=== PATIENT | male | born 1975 | race Hispanic/Latino ===

== ENCOUNTER 2019-08-16 21:22 | Inpatient (IN) | payer OTHER ==
[~2019-08-16] VITALS: Ht 160 cm; Wt 68.5 kg
[~2019-08-16 21:22] MED LIST: BACTRIM DS TAB1 EACH PO; HUMALOG100 UNIT/1 SC; HUMALOG100 UNIT/3 SC; LEVEMIR100 UNIT/1 SC; LISINOPRIL10 MG PO; LISINOPRIL2.5 MG PO; NOVOLOG MI100 UNITS/ INJ; NOVOLOG MI100 UNITS/ SC; PROTONIX40 MG PO
[2019-08-16] MEDS ORDERED: SODIUM CHLORIDE 0.9% 1000ML 1,000 ML IV STA (21:31)
--- NOTE | 2019-08-16 21:33 | Emergency Department Note ---
History of Present Illnes History of Present Illness History of Present Illness This is a 44 year old male (+) N/V x 4 days . Historian: Patient Arrival Mode: Car Onset (how long ago): day(s) (4) Severity: moderate Duration (how long): day(s) Timing of current episode: constant Progression: worsening Chronicity: new Context: Denies recent illness, Denies recent surgery, Denies recent immobilization, Denies recent travel, Denies trauma/injury, Denies new medications, Denies hx of DVT/PE, Denies non-compliance w/ medications, Denies other Relieving factors: none Exacerbating factors: none Associated symptoms: Reports nausea/vomiting; Denies fever/chills Past Medical/Family History Physician Review I have reviewed the patient's past medical and family history. Any updates have been documented here. Past Medical History Recent Fever: No Clinical Suspicion of Infectio: No New/Unexplained Change in Ment: No Social History Smoking Cessation: Never Smoker Alcohol Use: None Any Illegal Drug Use: No Other Last Tetanus: 2010 Review of Systems Review of Systems Constitutional: Reports no symptoms EENTM: Reports no symptoms Cardiovascular: Reports no symptoms Respiratory: Reports no symptoms Gastrointestinal: Reports nausea, Reports vomiting Genitourinary: Reports no symptoms Musculoskeletal: Reports no symptoms Integumentary: Reports no symptoms Neurological: Reports no symptoms Psychological: Reports no symptoms Endocrine: Reports no symptoms Hematological/Lymphatic: Reports no symptoms Physical Exam Related Data Allergies: Coded Allergies: No Known Allergies (Unverified , 02/04/14) Triage Vital Signs Vital Signs Date Time Temp Pulse Resp B/P (MAP) Pulse Ox O2 Delivery O2 Flow Rate FiO2 08/16/19 21:44 101.5 110 20 135/59 99 Room Air 08/17/19 09:00 2.0 Vital signs reviewed: Yes Physical Exam CONSTITUTIONAL Constitutional: Present morbidly obese, Present ill appearing HENT HENT: Present normocephalic, Present atraumatic, Present oropharynx clear/moist, Present nose normal HENT L/R: Present left ext ear normal, Present right ext ear normal EYES Eyes: Reports PERRL, Reports conjunctivae normal NECK Neck: Present ROM normal PULMONARY Pulmonary: Present effort normal, Present breath sounds normal CARDIOVASCULAR Cardiovascular: Present regular rhythm, Present heart sounds normal, Present capillary refill normal, Present normal rate GASTROINTESTINAL Abdominal: Present soft, Present nontender, Present bowel sounds normal GENITOURINARY Genitourinary: Present exam deferred SKIN Skin: Present warm, Present dry MUSCULOSKELETAL Musculoskeletal: Present ROM normal NEUROLOGICAL Neurological: Present alert, Present oriented x 3, Present no gross motor or sensory deficits PSYCHOLOGICAL Psychological: Present mood/affect normal, Present judgement normal Results Laboratory Lab results reviewed: Yes Imaging Imaging results reviewed: Yes Impressions [place] [id number] Patient Name: TRISHA STAUFFER MR #: [id number] : 1975 Age/Sex: 44/M Req #: [id number] Adm Physician: Ordered by: KIN CAREY DO Report #: [id number] Location: ER Room/Bed: Procedure: [id number] DX/CHEST 2 VIEWS Exam Date: 08/17/19 Exam Time: 0140 REPORT STATUS: Signed EXAMINATION: CHEST 2 VIEWS INDICATION: ^Y ^SOB ^[id number] ^[id number] COMPARISON: None FINDINGS: PA and lateral views TUBES and LINES: None. LUNGS: Ill-defined right upper lobe airspace opacity. Questionable subtle smaller left upper lobe opacity. PLEURA: No pleural effusion or pneumothorax. HEART AND MEDIASTINUM: The cardiomediastinal silhouette is unremarkable. BONES AND SOFT TISSUES: No acute osseous lesion. Soft tissues are unremarkable. UPPER ABDOMEN: No free air under the diaphragm. IMPRESSION: Right upper lobe airspace consolidation consistent with pneumonia. A follow-up radiograph is recommended in 6 weeks or following completion of medical therapy to document resolution. Signed by: Donald Yan MD on 08/17/2019 3:26 AM Dictated By: DONALD YAN MD 0326 Transcribed By: CASSIDY on 08/17/19 0326 COPY TO: KIN CAREY DO~ Procedures ABG Interpretation ABG Results: ABG 1 Interpretation: normal Critical Care Time Critcal care necessary due to: metabolic failure, respiratory failure Critcal care time spent by me: develop tx plan w patient/surrogate, evaluation patient response to tx, examination of patient, order/perform tx or interventions, order/review radiographic studies, re-evaluation of patient condition Assessment & Plan Medical Decision Making MDM 44 yom with PMH of DM . Diff Dx : hyperglycemia, hypoglycemia, ACS, DKA, Sepsis, COVID-19 infection Assessment & Plan Final Impression: (1) DKA (diabetic ketoacidoses) (2) Hypokalemia (3) Vomiting (4) Renal failure (5) Pneumonia (6) COVID-19 Depart Disposition: ADMITTED Home Meds Reported Medications Insulin Lispro (HUMALOG) 100 Unit/1 Ml Insuln.pen, 12-15 UNITS SC ACHS 12-15 UNITS WITH MEALS. 12 UNITS TO BE GIVEN WITH A SMALL MEAN AND 15 UNITS TO BE GIVEN WITH A LARGE MEAL. 12/02/15 Insulin Detemir (LEVEMIR) 100 Unit/1 Ml Vial, 10-16 UNIT SC BID 10 UNITS SUBCUTANEOUSLY IN THE MORNING. 16 UNITS SUBCUTANEOUSLY AT BEDTIME. 12/02/15 Lisinopril (LISINOPRIL) 10 Mg Tablet, 10 MG PO DAILY, #30 TAB 06/10/14 Pantoprazole Sodium (PROTONIX) 40 Mg Suspdr.pkt, 40 MG PO DAILY, #30 TAB 02/08/14 KIN CAREY DO Aug 16, 2019 21:33
[2019-08-16] MEDS ORDERED: ACETAMINOPHEN 325 MG TAB PO STA (21:45)
[2019-08-16] MEDS ORDERED: ONDANSETRON HCL INJ 2MG/ML 2ML 2 MG/ML VIAL IV STA (21:45)
--- NOTE | 2019-08-16 21:45 | NUR ---
AWARE OF ELEVATED GLUCOSE. NO NEW ORDERS AT THIS TIME.
[2019-08-16 22:20] LABS: BASOPHILS % 0.2 % (0.0-1.0); HEMATOCRIT 42.7 % (38.2-49.6); HEMOGLOBIN 13.7 g/dL (14.0-18.0); LYMPHOCYTES # (AUTO) 1.6 (1.0-3.2); LYMPHOCYTES % 31.2 % (18.0-39.1); MEAN CORPUSCULAR HEMOGLOBIN 28.7 pg (28-32); MEAN CORPUSCULAR HGB CONC 32.1 g/dL (31-35); MEAN CORPUSCULAR VOLUME 89.3 fL (81-99); MONOCYTES # (AUTO) 0.5 (0.2-0.8); MONOCYTES % 9.3 % (4.4-11.3); NEUTROPHILS % 58.7 % (38.7-80.0); PLATELET COUNT 225 x10e3/uL (140-360); RED BLOOD COUNT 4.78 x10e6/uL (4.3-5.7); RED CELL DISTRIBUTION WIDTH 12.6 % (11.7-14.4)
[2019-08-16 22:28] LABS: BILIRUBIN,URINE NEGATIVE (NEGATIVE); CLARITY,URINE HAZY (CLEAR); COLOR,URINE YELLOW (YELLOW); KETONES,URINE 1+ (NEGATIVE); LEUKOCYTE ESTERASE ,URINE NEGATIVE (NEGATIVE); NITRITE,URINE NEGATIVE (NEGATIVE); PROTEIN,URINE DIPSTICK >=300 (NEGATIVE); URINE UROBILINOGEN 0.2 mg/dL (0.2 - 1)
[2019-08-16 22:29] LABS: AMORPHOUS SEDIMENT,URINE FEW (FEW); BACTERIA,URINE FEW /HPF; EPITHELIAL CELLS,URINE FEW /LPF; RBC,URINE 0-5 /HPF (0-5); WBC,URINE (MAN) 0-5 /HPF (0-5)
[2019-08-16 22:43] LABS: ALBUMIN 2.7 g/dL (3.5-5.0); ALBUMIN/GLOBULIN RATIO 0.7 (0.8-2.0); CALCIUM 8.7 mg/dL (8.4-10.2); CREATININE, SERUM 2.93 mg/dL (0.72-1.25)
[2019-08-17] VITALS (16 sets, daily range): BP systolic 120–195; BP diastolic 64–86
[2019-08-17] MEDS ORDERED: SODIUM CHLORIDE 0.9% 1000ML 1,000 ML IV STA (00:30)
--- NOTE | 2019-08-17 03:29 | Diagnostic Imaging Report ---
EXAMINATION: CHEST 2 VIEWS INDICATION: ^Y ^SOB ^[id number] ^[id number] COMPARISON: None FINDINGS: PA and lateral views TUBES and LINES: None. LUNGS: Ill-defined right upper lobe airspace opacity. Questionable subtle smaller left upper lobe opacity. PLEURA: No pleural effusion or pneumothorax. HEART AND MEDIASTINUM: The cardiomediastinal silhouette is unremarkable. BONES AND SOFT TISSUES: No acute osseous lesion. Soft tissues are unremarkable. UPPER ABDOMEN: No free air under the diaphragm. IMPRESSION: Right upper lobe airspace consolidation consistent with pneumonia. A follow-up radiograph is recommended in 6 weeks or following completion of medical therapy to document resolution. Signed by: Rcio Junior MD on 08/17/2019 3:26 AM
[2019-08-17 03:59] LABS: ALBUMIN 2.2 g/dL (3.5-5.0); ALBUMIN/GLOBULIN RATIO 0.6 (0.8-2.0); ANION GAP 18.2 mmol/L (8-16); CALCIUM 7.7 mg/dL (8.4-10.2); CREATININE, SERUM 2.73 mg/dL (0.72-1.25)
[2019-08-17 04:08] LABS: POTASSIUM 6.2 mmol/L (3.5-5.1)
[2019-08-17] MEDS ORDERED: INSULIN REGULAR, HUMAN 100 UNIT/1 ML 3ML VIAL IV STA (04:32)
[2019-08-17] MEDS ORDERED: INSULIN REGULAR, HUMAN 3ML VL 300 UNIT in SODIUM CHLORIDE 0.9% 300 ML IV SCH ×2 (04:45)
[2019-08-17] MEDS ORDERED: MAGNESIUM SULF 1GRAM/DEXTROSE 100 ML IV PRN (04:45)
[2019-08-17] MEDS ORDERED: DEXTROSE 5%/0.45% SOD CHL 1,000 ML IV SCH ×2 (04:45→06:45)
[2019-08-17] MEDS ORDERED: POTASSIUM CHLORIDE 20MEQ/100ML 200 ML IV PRN (04:45)
[2019-08-17] MEDS ORDERED: SODIUM CHLORIDE 0.9% 1000ML 1,000 ML IV SCH (04:45)
[2019-08-17] MEDS ORDERED: INSULIN REGULAR, HUMAN 100 UNIT/1 ML 3ML VIAL SQ STA (05:26)
[2019-08-17] MEDS: PIPER-TAZ 3.375 GM 50 ML IV SCH ×3 (06:22→17:24)
[2019-08-17] MEDS ORDERED: ONDANSETRON HCL INJ 2MG/ML 2ML 2 MG/ML VIAL ONE (07:00)
--- NOTE | 2019-08-17 07:00 | NUR ---
ER NOTIFIED AND AWARE OF BEDSIDE GLUCOSE, 513.
[2019-08-17] MEDS ORDERED: ONDANSETRON HCL INJ 2MG/ML 2ML 2 MG/ML VIAL IV STA (07:01)
[2019-08-17] MEDS ORDERED: ASPIRIN 81 MG CHEW TAB PO ONE (07:30)
[2019-08-17 07:43] LABS: ALBUMIN 2.3 g/dL (3.5-5.0); ALBUMIN/GLOBULIN RATIO 0.6 (0.8-2.0); CALCIUM 8.3 mg/dL (8.4-10.2); CREATININE, SERUM 2.86 mg/dL (0.72-1.25)
[2019-08-17] MEDS: INSULIN REGULAR, HUMAN 3ML VL 100 UNIT in SODIUM CHLORIDE 0.9% 99 ML IV SCH ×4 (09:27→17:57)
[2019-08-17 09:38] LABS: ANION GAP 23.4 mmol/L (8-16); CALCIUM 8.5 mg/dL (8.4-10.2); CREATININE, SERUM 2.93 mg/dL (0.72-1.25); MAGNESIUM 2.6 MG/DL (1.3-2.1); POTASSIUM 5.4 mmol/L (3.5-5.1)
[2019-08-17 10:01] LABS: CREATINE KINASE MB 1.5 ng/mL (0-5.0)
[2019-08-17 13:24] LABS: ANION GAP 16.8 mmol/L (8-16); CALCIUM 8.5 mg/dL (8.4-10.2); CREATININE, SERUM 2.87 mg/dL (0.72-1.25); MAGNESIUM 2.5 MG/DL (1.3-2.1); POTASSIUM 4.8 mmol/L (3.5-5.1)
--- NOTE | 2019-08-17 14:36 | Consultation ---
DATE OF CONSULTATION: Pulmonary Critical Care Consultation CHIEF COMPLAINT: Nausea, vomiting, malaise, and positive COVID test. HISTORY OF PRESENT ILLNESS: The patient is a 44-year-old man. He has a history of type 1 diabetes. He has required hospitalization previously for diabetic ketoacidosis. He is on insulin at home. Over the past several days, he has noticed increased malaise and fatigue. He had some vomiting. Apparently, he took decreased insulin. He does not complain of fevers. He denies cough or dyspnea. When he came to the emergency department, he was found to have an elevated creatinine along with an anion gap acidosis and hyperglycemia. He also had a positive COVID-19 result. PAST SURGICAL HISTORY: The patient denies any prior surgeries. PAST MEDICAL HISTORY: 1. Diabetes. 2. The patient denies any prior renal disease. 3. The patient denies any prior cardiac disease. SOCIAL HISTORY: The patient has never been a smoker. He is not a drinker. ALLERGIES: NO KNOWN DRUG ALLERGIES. REVIEW OF SYSTEMS: The patient denies fever. There is no headache. He is not having any neck pain. He denies any chest pain. He does have nausea and vomiting. He denies dyspnea or cough. He has no leg edema. PHYSICAL EXAMINATION: VITAL SIGNS: The blood pressure is 144/76 and the saturation is 99% on 2 L. Pulse is 108. HEENT: No facial swelling or erythema. CARDIAC: Regular rate and rhythm with a normal S1, S2. LUNGS: Auscultation of lungs shows clear breath sounds bilaterally. There is no wheezing. ABDOMEN: Nontender to palpation. No rebound or guarding. EXTREMITIES: No leg edema or calf tenderness. There is no cyanosis or clubbing. SKIN: No rashes. NEUROLOGICAL: No focal abnormalities. LABORATORY DATA: White blood cell count is 5, hemoglobin is 13.7, and platelet count is 225. BUN to creatinine ratio is 45 to 2.87 with a GFR of 24. Carbon dioxide is 18 and the anion gap is 17. RADIOGRAPHIC DATA: Chest x-ray shows right upper lobe consolidation consistent with pneumonia. IMPRESSION: 1. Coronavirus disease-19 and viral pneumonia. 2. Diabetic ketoacidosis. 3. Acute renal failure. PLAN: 1. The patient has received several liters of fluid. We will continue IV hydration. 2. Continue insulin drip. 3. Replace potassium. 4. Renal ultrasound. 5. Nephrology consultation. 6. Zithromax daily. 7. Heparin for DVT prophylaxis. 8. Avoid Decadron in this case because of DKA. MD ABBI Rausch/RONNIE /[id number]
[2019-08-17] MEDS ORDERED: SODIUM BICARBONATE 8.4% 50 ML in DEXTROSE 5%/0.45% SOD CHL 1,000 ML IV SCH (15:00)
[2019-08-17] MEDS ORDERED: DEXAMETHASONE SOD PHOS 10 MG/1 ML VIAL IV SCH (15:00)
[2019-08-17] MEDS: AZITHROMYCIN 500MG/NS 250 ML 250 ML IV SCH (15:34)
[2019-08-17] MEDS ORDERED: DEXAMETHASONE PHOS 4MG/ML 5ML MULTIDOSE VIAL IV SCH (16:00)
--- NOTE | 2019-08-17 16:57 | Diagnostic Imaging Report ---
EXAM: Renal Ultrasound INDICATION: ^ELEVATED CREATININE COMPARISON: Ultrasound abdomen complete of 02/28/2016 TECHNIQUE: Transverse and longitudinal images of the kidneys and bladder were obtained. FINDINGS: Right Kidney: Length: 11.0 cm Appearance: Normal echogenicity. Collecting system: No hydronephrosis Stones: None Cyst/Mass: None Left Kidney: Length: 11.0 cm Appearance: Normal echogenicity. Collecting system: No hydronephrosis Stones: None Cyst/Mass: None Bladder: No mass or calculi. Bilateral ureteral jets visualized. Prevoid volume estimate of 182-cc. The prostate appears unremarkable. IMPRESSION: No renal calculi or hydronephrosis. Signed by: Rohan Rajan MD on 08/17/2019 4:54 PM
[2019-08-17] MEDS: ENOXAPARIN 30 MG/0.3 ML SYR SC SCH (17:16)
[2019-08-17 17:44] LABS: CREATINE KINASE MB 1.5 ng/mL (0-5.0)
[2019-08-17 17:57] LABS: ANION GAP 12.5 mmol/L (8-16); CALCIUM 8.3 mg/dL (8.4-10.2); CREATININE, SERUM 2.72 mg/dL (0.72-1.25); MAGNESIUM 2.3 MG/DL (1.3-2.1); POTASSIUM 4.5 mmol/L (3.5-5.1)
--- NOTE | 2019-08-17 19:37 | Consultation ---
DATE OF CONSULTATION: Initial Nephrology Consultation Report REASON FOR CONSULTATION: Renal failure, elevated BUN and creatinine. HISTORY OF PRESENT ILLNESS: Mr. Lang is a 44-year-old male, who presented to the hospital. He is type 1 diabetic, who presented to the hospital with some nausea and vomiting going on for about 3-5 days now. He has been admitted into the hospital with DKA and also he was discovered to be COVID positive. I am being asked to see him because serum creatinine of 2.87. It seems that when the patient was admitted, his serum creatinine was 2.9, it went to 2.73, 2.86, 2.93 and today it is 2.87. Looking back at previous records, I saw him in 2017. He also had a hospitalization, where he came in with a serum creatinine of about 2.1, and then over the past 4-5 days, it went down to 1.08. PAST MEDICAL HISTORY: Type 1 diabetes. He has had also multiple admissions for diabetic ketoacidosis. PAST SURGICAL HISTORY: Unknown. SOCIAL HISTORY: Unknown. REVIEW OF SYSTEMS: As per HPI. PHYSICAL EXAMINATION: VITAL SIGNS: Blood pressure is 126/68 and pulse 92. GENERAL: The patient is somnolent right now. He is resting. He is on nasal cannula oxygen. Slightly obese. He has vitiligo over his body. CARDIOVASCULAR: Regular rate and rhythm. LUNGS: Decreased breath sounds. ABDOMEN: Decreased bowel sounds. EXTREMITIES: No significant edema. LABORATORY RESULTS: Sodium 136, potassium 4.8, chloride 106, bicarb 18, and BUN and creatinine 45 and 2.8, respectively. Magnesium 2.5. Blood gas from yesterday shows pH 7.33, pCO2 of 34, pO2 of 36, and bicarb 18. IMPRESSION: 1. Acute kidney injury versus chronic kidney disease. 2. Diabetic ketoacidosis. 3. Elevated anion gap metabolic acidosis. 4. Coronavirus disease positive. 5. COVID pneumonia. 6. Hyperglycemia. PLAN: The patient came in with sugars in excess of 600. He is in diabetic ketoacidosis. He is on an insulin drip. He is on D5 half-normal saline. I would use lactated Ringer's, but his potassium has been high, I will use D5 half-normal saline with one amp of sodium bicarb. This will help the metabolic acidosis. NSAIDs, GARRIDO-2 inhibitors, and IV contrast should be avoided. I will check a renal ultrasound on him to see the chronicity with kidney failure. I will follow the patient with you. Thank you, Dr. Reina and Dr. Augustine for this consultation. Ather MD BRAYAN Ley/RONNIE /[id number]
[2019-08-17] MEDS ORDERED: HEPARIN SOD (PORCINE) 5,000 UNIT/ML VIAL SC SCH (21:00)
[2019-08-17 21:15] LABS: ANION GAP 13.8 mmol/L (8-16); CALCIUM 7.9 mg/dL (8.4-10.2); CREATININE, SERUM 2.48 mg/dL (0.72-1.25); MAGNESIUM 2.3 MG/DL (1.3-2.1); POTASSIUM 4.8 mmol/L (3.5-5.1)
[2019-08-17 21:49] LABS: CREATINE KINASE 104 IU/L (30-200)
[2019-08-17] MEDS ORDERED: DEXTROSE 5%/0.45% SOD CHL 1,000 ML IV ONE (23:33)
[2019-08-18] VITALS (19 sets, daily range): BP systolic 109–185; BP diastolic 53–101
[2019-08-18 00:23] LABS: ANION GAP 11.5 mmol/L (8-16); CALCIUM 8.1 mg/dL (8.4-10.2); CREATININE, SERUM 2.54 mg/dL (0.72-1.25); MAGNESIUM 2.3 MG/DL (1.3-2.1); POTASSIUM 4.5 mmol/L (3.5-5.1)
[2019-08-18] MEDS: PIPER-TAZ 3.375 GM 50 ML IV SCH ×4 (00:43→17:16)
[2019-08-18] MEDS ORDERED: SODIUM CHLORIDE 0.9% 1000ML 1,000 ML ONE (00:53)
[2019-08-18] MEDS ORDERED: SODIUM CHLORIDE 0.9% 1000ML 1,000 ML IV SCH (01:00)
--- NOTE | 2019-08-18 01:34 | History and Physical ---
CHIEF COMPLAINT: Nausea and vomiting and general malaise. HISTORY OF PRESENT ILLNESS: A 44-year-old gentleman with a known history of diabetes mellitus type1, who presented to the hospital complaining of an increase malaise along with nausea and vomiting. The patient denies having fever. No cough or shortness of breath. He was found to be dehydrated when arrival to the emergency department. He was hyperglycemic and anion gap acidosis. The patient was noted to have a positive test for COVID-19 and purpose of addressing this condition and the patient did have a chest x-ray and the findings were that of right upper lobe airspace consolidation consistent with pneumonia. The patient was admitted for further evaluation and treatment. PAST MEDICAL HISTORY: History of diabetes mellitus. No previous history of renal problems or renal issues. FAMILY HISTORY: Noncontributory. SOCIAL HISTORY: No history of tobacco or alcohol abuse. ALLERGIES: NO KNOWN DRUG ALLERGIES. PHYSICAL EXAMINATION: GENERAL: Basically revealed the patient is alert and oriented. VITAL SIGNS: Blood pressure 144/66, pulse in the 100s, respirations 18, and he was tachypneic. HEENT: Head is normocephalic and atraumatic. NECK: Supple. No JVD. LUNGS: Clear to auscultation. HEART: Rate and rhythm. ABDOMEN: Soft, nontender. EXTREMITIES: No edema. NEUROLOGIC: Nonfocal. ASSESSMENT: 1. Viral pneumonia secondary to a coronavirus-19. 2. Uncontrolled diabetes mellitus. 3. Diabetic ketoacidosis. 4. Acute kidney injury. PLAN OF CARE: Admitted to the ICU. . Nephrology consultation requested. Antibiotic . Heparin for DVT prophylaxis. MD ANGIE Cuevas/RONNIE /[id number]
[2019-08-18] MEDS: INSULIN REGULAR, HUMAN 3ML VL 100 UNIT in SODIUM CHLORIDE 0.9% 99 ML IV SCH ×2 (01:39)
[2019-08-18] MEDS ORDERED: INSULIN GLARGINE 100 UNITS/ML VIAL SQ ONE (03:15)
[2019-08-18] MEDS ORDERED: DEXTROSE 50% SYRINGE 50 ML IV PRN (03:15)
[2019-08-18 05:47] LABS: BASOPHILS % 0.1 % (0.0-1.0); HEMOGLOBIN 12.7 g/dL (14.0-18.0); LYMPHOCYTES % 11.1 % (18.0-39.1); MEAN CORPUSCULAR HEMOGLOBIN 29.4 pg (28-32); MEAN CORPUSCULAR HGB CONC 32.6 g/dL (31-35); MEAN CORPUSCULAR VOLUME 90.3 fL (81-99); MONOCYTES # (AUTO) 0.4 (0.2-0.8); MONOCYTES % 4.5 % (4.4-11.3); NEUTROPHILS # (AUTO) 7.9 (2.1-6.9); NEUTROPHILS % 83.8 % (38.7-80.0); PLATELET COUNT 231 x10e3/uL (140-360); RED BLOOD COUNT 4.32 x10e6/uL (4.3-5.7); RED CELL DISTRIBUTION WIDTH 12.3 % (11.7-14.4)
[2019-08-18 06:05] LABS: ALBUMIN 2.3 g/dL (3.5-5.0); ALBUMIN/GLOBULIN RATIO 0.6 (0.8-2.0); ANION GAP 17.1 mmol/L (8-16); CALCIUM 8.1 mg/dL (8.4-10.2); CREATININE, SERUM 2.57 mg/dL (0.72-1.25); POTASSIUM 5.1 mmol/L (3.5-5.1)
[2019-08-18] MEDS: INSULIN REGULAR, HUMAN 100 UNIT/1 ML 3ML VIAL SQ SCH ×4 (08:04→20:45)
--- NOTE | 2019-08-18 08:31 | Diagnostic Imaging Report ---
EXAMINATION: CHEST SINGLE (PORTABLE) INDICATION: Viral pneumonia COMPARISON: Chest radiograph 08/17/2019 FINDINGS: LINES/TUBES:EKG leads overlie the chest. LUNGS:Slight increase in right upper lung and left midlung hazy opacities. PLEURA:No pleural effusion or pneumothorax. MEDIASTINUM:The cardiomediastinal silhouette appears unchanged in size and shape. BONES/SOFT TISSUES:No acute osseous injury. ABDOMEN:No free air under the diaphragm. IMPRESSION: Slight increase in right upper lung and left midlung hazy opacities consistent with provided history of viral pneumonia. Signed by: Rohan Rajan MD on 08/18/2019 8:27 AM
[2019-08-18] MEDS: GUAIFENESIN/CODEINE 10 ML CUP PO PRN (08:53)
[2019-08-18] MEDS: CARVEDILOL 3.125 MG TAB PO SCH ×2 (08:53→16:07)
[2019-08-18] MEDS: DEXAMETHASONE PHOS 4MG/ML 5ML MULTIDOSE VIAL IV SCH (08:59)
--- NOTE | 2019-08-18 09:04 | Progress Note ---
DATE: Pulmonary Critical Care Progress Note SUBJECTIVE: The patient is now off insulin drip. He has less nausea and vomiting. He feels better overall. He is not complaining of dyspnea. He does have mild cough. PHYSICAL EXAMINATION: VITAL SIGNS: Blood pressure is 175/84, saturation is 96% on 2 L. Heart rate is 100 to 110. HEENT: Shows no facial swelling or erythema. CARDIAC: Reveals regular rate and rhythm with normal S1, S2. LUNGS: Auscultation of lungs reveals crackles at the bases. There is no wheezing. ABDOMEN: Soft and nontender. There is no rebound or guarding. EXTREMITIES: Shows no leg edema or calf tenderness. There is no cyanosis or clubbing. SKIN: Shows no rashes. NEUROLOGICAL: Shows no focal abnormalities. LABORATORY DATA: ZFP-zv-jlzacsjhvj ratio is 40 to 2.57 and the potassium is 5.1. Other electrolytes are within normal limits. Calcium is 8.1 and the albumin is 2.3. White blood cell count is 9.34 and hemoglobin is 12.7. The platelet count is 231,000. IMPRESSION: 1. Diabetic ketoacidosis has improved. 2. Viral pneumonia and COVID-19 infection. 3. Acute kidney injury. 4. Hypertension. PLAN: 1. The patient has been transitioned to Lantus once a day along with a sliding scale. 2. Continue to use IV fluids as needed. 3. Monitor BUN and creatinine. 4. Continue current antibiotics. 5. Dexamethasone. 6. Lovenox. Rogelio Augustine MD [facility]/MODL /[id number]
[2019-08-18] MEDS: AZITHROMYCIN 500MG/NS 250 ML 250 ML IV SCH (13:03)
[2019-08-18 15:19] LABS: ANION GAP 12.9 mmol/L (8-16); CALCIUM 8.1 mg/dL (8.4-10.2); CREATININE, SERUM 2.12 mg/dL (0.72-1.25); POTASSIUM 4.9 mmol/L (3.5-5.1)
[2019-08-18] MEDS: SODIUM BICARBONATE 8.4% 50 ML in SODIUM CHLORIDE 0.45% 1,000 ML IV SCH (16:01)
[2019-08-18] MEDS: CHOLECALCIFEROL 400 UNIT TAB PO SCH (16:06)
[2019-08-18] MEDS: ENOXAPARIN 30 MG/0.3 ML SYR SC SCH (16:06)
[2019-08-18] MEDS: ASCORBIC ACID 500 MG TAB PO SCH (16:06)
--- NOTE | 2019-08-18 17:17 | NUR ---
patient received from ICU via WC. vitals stable with no distress. no complaints. dropplet isolation in effect.
--- NOTE | 2019-08-18 19:01 | NUR ---
BSSR GIVEN BY GAY PASCUAL, PATIENT STABLE, REMAIN ON DROPLET PRECAUTIONS AT THIS TIME, NO DISTRESS NOTED, IV ABT CONTINUES AT THIS TIME, TOLERATING WELL, CALL LIGHT WITHIN REACH, WILL RESUME CARE OF PATIENT AT THIS TIME
[2019-08-18] MEDS: CEFTRIAXONE SOD 1 GM/NS 50 ML 50 ML IV SCH (20:10)
--- NOTE | 2019-08-18 21:08 | Consultation ---
DATE OF CONSULTATION: REASON FOR CONSULTATION: Pneumonia. HISTORY OF PRESENT ILLNESS: This patient who is a 44-year-old male with history of diabetes mellitus. The patient apparently has been sick for more than 11 days according to him, nausea, vomiting, really fatigued, came into the emergency room with nausea and vomiting. The patient is being admitted. The patient has history of diabetes mellitus and obesity. He is currently being admitted. I am asked to see him. PAST MEDICAL HISTORY: Diabetes mellitus. PAST SURGICAL HISTORY: As above. ALLERGIES: NKA. SOCIAL HISTORY: There is no smoking, drug abuse, or alcohol abuse. PHYSICAL EXAMINATION: GENERAL: Currently alert, oriented. VITAL SIGNS: Stable, currently afebrile. HEENT: He is not icteric. NECK: Supple. CHEST: Clear. HEART: S1 and S2. ABDOMEN: Soft. He is currently on oxygen. LABORATORY DATA: His COVID-19 was positive. Sodium 137, potassium 5.1, creatinine 2.57. IMPRESSION: Coronavirus disease 2019, has been sick for 11 days, chronic kidney disease. I recommend to put him on Rocephin 1 g daily, azithromycin 500 daily, Lovenox as mentioned above at the lower does, diabetic control. We will follow. MD LIS Shankar/RONNIE /[id number]
[2019-08-19] VITALS (10 sets, daily range): BP systolic 131–162; BP diastolic 65–87
[2019-08-19] MEDS: ONDANSETRON HCL INJ 2MG/ML 2ML 2 MG/ML VIAL IV PRN (03:30)
--- NOTE | 2019-08-19 03:30 | NUR ---
CALL LIGHT ANSWERED C/O NAUSEA, EMESIS BAG GIVEN
--- NOTE | 2019-08-19 03:36 | NUR ---
PRN ZOFRAN GIVEN IV, PT TOLERATED WELL
[2019-08-19] MEDS: SODIUM BICARBONATE 8.4% 50 ML in SODIUM CHLORIDE 0.45% 1,000 ML IV SCH ×2 (04:09→13:08)
[2019-08-19 06:47] LABS: ALBUMIN/GLOBULIN RATIO 0.5 (0.8-2.0); ANION GAP 12.2 mmol/L (8-16); CALCIUM 8.2 mg/dL (8.4-10.2); CREATININE, SERUM 2.01 mg/dL (0.72-1.25); POTASSIUM 4.2 mmol/L (3.5-5.1)
[2019-08-19 06:52] LABS: BASOPHILS % 0.2 % (0.0-1.0); HEMATOCRIT 36.7 % (38.2-49.6); LYMPHOCYTES # (AUTO) 1.1 (1.0-3.2); LYMPHOCYTES % 8.1 % (18.0-39.1); MEAN CORPUSCULAR HEMOGLOBIN 28.7 pg (28-32); MEAN CORPUSCULAR HGB CONC 32.7 g/dL (31-35); MEAN CORPUSCULAR VOLUME 87.8 fL (81-99); MONOCYTES # (AUTO) 0.5 (0.2-0.8); NEUTROPHILS # (AUTO) 11.4 (2.1-6.9); PLATELET COUNT 256 x10e3/uL (140-360); RED BLOOD COUNT 4.18 x10e6/uL (4.3-5.7); RED CELL DISTRIBUTION WIDTH 12.5 % (11.7-14.4)
--- NOTE | 2019-08-19 07:00 | NUR ---
change of shift report received from PM nurse. pt awake, alert, oriented X3, on 2L NC, tolerating well. no signs of distress. pt states he has been ambulating in room without difficulty. in stable condition. will continue to monitor.
[2019-08-19] MEDS: INSULIN REGULAR, HUMAN 100 UNIT/1 ML 3ML VIAL SQ SCH ×4 (08:04→20:46)
[2019-08-19] MEDS: CHOLECALCIFEROL 400 UNIT TAB PO SCH ×2 (09:04→16:37)
[2019-08-19] MEDS: CARVEDILOL 3.125 MG TAB PO SCH ×2 (09:04→16:37)
[2019-08-19] MEDS: DEXAMETHASONE PHOS 4MG/ML 5ML MULTIDOSE VIAL IV SCH (09:04)
[2019-08-19] MEDS: ASCORBIC ACID 500 MG TAB PO SCH ×2 (09:04→16:37)
[2019-08-19] MEDS: ZINC SULFATE 220 MG CAP PO SCH (09:04)
[2019-08-19] MEDS: AZITHROMYCIN 500MG/NS 250 ML 250 ML IV SCH (12:48)
--- NOTE | 2019-08-19 13:45 | Progress Note ---
DATE: SUBJECTIVE: The patient remains in the intensive care unit. Events noted. The patient is being followed by ID and Pulmonary. The patient has been feeling less nauseated. He is feeling better and breathing has improved. Complains of cough. OBJECTIVE: VITAL SIGNS: The patient's vital signs noted. His blood pressure 139/73, respirations 21, temperature 99.2. Physical examination is essentially unchanged. ASSESSMENT: 1. Viral pneumonia secondary to coronavirus-19. 2. Uncontrolled diabetes mellitus. 3. Diabetes ketoacidosis, resolved. 4. Acute kidney injury. PLAN OF CARE: Continue present care. List of medications noted. Rufus Reina MD ANGIE/MODL /[id number]
--- NOTE | 2019-08-19 15:16 | Progress Note ---
DATE: SUBJECTIVE: The patient is transferred out of the Intensive Care Unit. He has less cough and less dyspnea. PHYSICAL EXAMINATION: VITAL SIGNS: Blood pressure is 141/65, saturation is 98% on 2 L, heart rate is 100 to 110, and T-max 99.6. HEENT: Shows no facial swelling or erythema. CARDIAC: Reveals regular rate and rhythm with normal S1, S2. LUNGS: Auscultation of lungs reveals crackles at the bases. There is no wheezing. ABDOMEN: Soft. There is no rebound or guarding. EXTREMITIES: Shows no leg edema or calf tenderness. There is no cyanosis or clubbing. LABORATORY DATA: White blood cell count is 13 and hemoglobin is 12. The platelet count is 256. BUN to creatinine ratio is 32 to 2.01. Other electrolytes within normal limits. Blood sugars 180 to 300. IMPRESSION: 1. Viral pneumonia and COVID-19 infection. 2. Diabetes. 3. Acute kidney injury. 4. Hypertension. PLAN: 1. Adjust insulin. 2. Continue IV fluids as needed. 3. Monitor BUN and creatinine. 4. Continue dexamethasone. 5. Continue Lovenox. 6. Complete current antibiotics. Rogelio Augustine MD [facility]/MODL /[id number]
--- NOTE | 2019-08-19 16:14 | NUR ---
spoke with Dr. Gloria at bedside regarding pt's blood sugars and labs; MD ordered stop IV fluids and start pt on 650 mg Sodium Bicarb PO BID for two days, or until discharged from hospital.
[2019-08-19] MEDS ORDERED: NON-FORMULARY MEDICATION (Insulin Lispro (Humalog) 8 UNITS) SC SCH (16:30)
[2019-08-19] MEDS: SODIUM BICARBONATE 650 MG TAB PO SCH (16:37)
[2019-08-19] MEDS: ENOXAPARIN 30 MG/0.3 ML SYR SC SCH (16:37)
[2019-08-19] MEDS: ACETAMINOPHEN 325 MG TAB PO PRN (16:37)
[2019-08-19] MEDS: INSULIN LISPRO 100 UNIT/1 ML 3ML VIAL SQ SCH (17:15)
--- NOTE | 2019-08-19 18:07 | Progress Note ---
DATE: SUBJECTIVE: Mr. Lang is feeling better. His breathing is better. REVIEW OF SYSTEMS: HEENT: Negative. PULMONARY: Negative. CARDIAC: Negative. PHYSICAL EXAMINATION: GENERAL: He is currently alert and oriented. Does not seem to be in acute distress. VITAL SIGNS: Stable, currently afebrile. HEENT: Not icteric. NECK: Supple. CHEST: Clear. Heart: S1 and S2. ABDOMEN: Soft. IMPRESSION: Coronavirus disease-19, improving; chronic kidney disease. He is on azithromycin and Rocephin. We will finish 3 days dexamethasone. Continue to wean him down oxygen, but I think the patient would benefit from going home with home oxygen. ADDENDUM: The patient had fever. We will get blood cultures. Recheck CBC with diff. We will follow. MD LIS Shankar/RONNIE /[id number]
[2019-08-19] MEDS: CEFTRIAXONE SOD 1 GM/NS 50 ML 50 ML IV SCH (19:00)
--- NOTE | 2019-08-19 19:20 | NUR ---
Received change of shift report from am nurse. Walking rounds completed.
[2019-08-19] MEDS: INSULIN GLARGINE 100 UNITS/ML VIAL SQ SCH (20:47)
--- NOTE | 2019-08-19 22:54 | NUR ---
Patient received insulin for BS of 356. x2 to left upper arm. Patient tolerated well. Patient received snack.
[2019-08-20] VITALS (8 sets, daily range): BP systolic 131–163; BP diastolic 73–92
--- NOTE | 2019-08-20 00:06 | NUR ---
Dr Reina in to see patient. No noted orders written at this time. Continue monitor.
--- NOTE | 2019-08-20 00:18 | Progress Note ---
DATE: 08/19/2019 SUBJECTIVE: The patient was seen and evaluated on August 19, 2019. The patient was admitted to the hospital and being followed for underlying problems: 1. Viral pneumonia secondary to COVID-19 infection. 2. Diabetic ketoacidosis. 3. Acute kidney injury. 4. Hypertension. OBJECTIVE: VITAL SIGNS: Remained stable. Blood pressure 121/78, respirations 20, pulse 92, temperature 99.0. LABORATORY DATA: Noted. Hemoglobin 12.0, white blood cell count 13.06, platelet count 256,000. Sodium 135, potassium 4.2, chloride 106, CO2 of 21, BUN 32, creatinine 2.01. PLAN: Continue to monitor kidney function. Continue present care as advised. ID evaluation noted. Pulmonary evaluation noted. Continue present care. MD ANGIE Cuevas/RONNIE /[id number]
[2019-08-20] MEDS: ACETAMINOPHEN 325 MG TAB PO PRN ×2 (00:21→13:22)
[2019-08-20] MEDS: ZOLPIDEM TARTRATE 5 MG TAB PO PRN ×2 (00:22→21:54)
--- NOTE | 2019-08-20 00:32 | NUR ---
Patient with temp 99.3. Given tylenol and sleep pill.
--- NOTE | 2019-08-20 04:23 | NUR ---
Patient resting quitly at this time with no c/o. Continue monitor for changes in condition.
[2019-08-20 06:19] LABS: BASOPHILS % 0.1 % (0.0-1.0); HEMATOCRIT 35.9 % (38.2-49.6); HEMOGLOBIN 11.5 g/dL (14.0-18.0); LYMPHOCYTES # (AUTO) 1.5 (1.0-3.2); LYMPHOCYTES % 10.1 % (18.0-39.1); MEAN CORPUSCULAR HEMOGLOBIN 28.4 pg (28-32); MEAN CORPUSCULAR VOLUME 88.6 fL (81-99); MONOCYTES # (AUTO) 0.5 (0.2-0.8); NEUTROPHILS # (AUTO) 12.9 (2.1-6.9); NEUTROPHILS % 85.7 % (38.7-80.0); PLATELET COUNT 262 x10e3/uL (140-360); RED BLOOD COUNT 4.05 x10e6/uL (4.3-5.7); RED CELL DISTRIBUTION WIDTH 12.5 % (11.7-14.4)
[2019-08-20 06:56] LABS: ALBUMIN 1.8 g/dL (3.5-5.0); ALBUMIN/GLOBULIN RATIO 0.4 (0.8-2.0); ANION GAP 10.3 mmol/L (8-16); CALCIUM 8.3 mg/dL (8.4-10.2); CREATININE, SERUM 1.96 mg/dL (0.72-1.25); POTASSIUM 4.3 mmol/L (3.5-5.1)
[2019-08-20] MEDS: INSULIN REGULAR, HUMAN 100 UNIT/1 ML 3ML VIAL SQ SCH ×4 (07:30→22:47)
--- NOTE | 2019-08-20 07:30 | NUR ---
PT UP IN BED ,AWAKE ,DENIES PAIN,O2 3L NC IN PLACE.NO SOB NOTED
[2019-08-20] MEDS: INSULIN LISPRO 100 UNIT/1 ML 3ML VIAL SQ SCH ×3 (08:00→16:30)
[2019-08-20] MEDS: SODIUM BICARBONATE 650 MG TAB PO SCH ×2 (08:22→17:00)
[2019-08-20] MEDS: DEXAMETHASONE PHOS 4MG/ML 5ML MULTIDOSE VIAL IV SCH (08:22)
[2019-08-20] MEDS: ASCORBIC ACID 500 MG TAB PO SCH ×2 (08:22→17:00)
[2019-08-20] MEDS: ZINC SULFATE 220 MG CAP PO SCH (08:23)
[2019-08-20] MEDS: DEXAMETHASONE PHOS 4MG/ML 6 MG in SODIUM CHLORIDE 0.9% 50ML 50 ML IV SCH (10:08)
[2019-08-20] MEDS: CHOLECALCIFEROL 400 UNIT TAB PO SCH ×2 (10:08→17:00)
[2019-08-20] MEDS: CARVEDILOL 3.125 MG TAB PO SCH ×2 (10:09→17:00)
--- NOTE | 2019-08-20 11:30 | NUR ---
GLUCOSE 299 INSULIN GIVEN ORDERED
[2019-08-20] MEDS: AZITHROMYCIN 500MG/NS 250 ML 250 ML IV SCH (13:56)
--- NOTE | 2019-08-20 16:30 | NUR ---
PT GLUCOSE 359 INSULIN GIVEN ORDERED,JOSE HOLT
[2019-08-20] MEDS: ENOXAPARIN 30 MG/0.3 ML SYR SC SCH (17:00)
--- NOTE | 2019-08-20 17:32 | NUR ---
PT AFEBRILE,NO DISTRESS NOTED O2 2L NC IN PLACE
[2019-08-20] MEDS: CEFTRIAXONE SOD 1 GM/NS 50 ML 50 ML IV SCH (19:00)
--- NOTE | 2019-08-20 19:21 | NUR ---
Received change of shift report from AM nurse. Walking rounds completed.
--- NOTE | 2019-08-20 19:22 | Progress Note ---
DATE: SUBJECTIVE: The patient is feeling better. He is now on 2 L nasal cannula. He is eager to go home. PHYSICAL EXAMINATION: VITAL SIGNS: Blood pressure is 142/92, saturation is 98%. HEENT: No facial swelling or erythema. CARDIAC: Regular rate and rhythm with normal S1, S2. LUNGS: Auscultation of lungs reveals clear breath sounds bilaterally. There is no wheezing. ABDOMEN: Soft, nontender. There is no rebound or guarding. EXTREMITIES: No leg edema or calf tenderness. There is no cyanosis or clubbing. SKIN: No rashes. LABORATORY DATA: White blood cell count is 15, hemoglobin is 11.5, and the platelet count is 262. BUN to creatinine ratio is 31 to 1.96. The blood sugars are 129-299. Albumin is 1.8. IMPRESSION: 1. Viral pneumonia and coronavirus disease-19 infection. 2. Acute kidney injury. 3. Diabetes with elevated blood sugars. PLAN: 1. Home oxygen evaluation. 2. Complete antibiotics. 3. Complete dexamethasone. 4. Continue to monitor creatinine. Rogelio Augustine MD [facility]/MODL /[id number]
[2019-08-20] MEDS: INSULIN GLARGINE 100 UNITS/ML VIAL SQ SCH (21:00)
[2019-08-20] MEDS: GUAIFENESIN/CODEINE 10 ML CUP PO PRN (21:54)
[2019-08-21] VITALS (9 sets, daily range): BP systolic 111–162; BP diastolic 76–92
--- NOTE | 2019-08-21 04:24 | NUR ---
Patient resting quitly at this time. Continue monitor. for changes in condition.
[2019-08-21 06:03] LABS: BASOPHILS % 0.3 % (0.0-1.0); EOSINOPHILS % 0.3 % (0.0-6.0); HEMATOCRIT 37.6 % (38.2-49.6); HEMOGLOBIN 12.1 g/dL (14.0-18.0); LYMPHOCYTES # (AUTO) 1.8 (1.0-3.2); LYMPHOCYTES % 18.4 % (18.0-39.1); MEAN CORPUSCULAR HGB CONC 32.2 g/dL (31-35); MEAN CORPUSCULAR VOLUME 90.2 fL (81-99); MONOCYTES # (AUTO) 0.6 (0.2-0.8); MONOCYTES % 6.2 % (4.4-11.3); PLATELET COUNT 285 x10e3/uL (140-360); RED BLOOD COUNT 4.17 x10e6/uL (4.3-5.7); RED CELL DISTRIBUTION WIDTH 12.2 % (11.7-14.4)
[2019-08-21 06:35] LABS: ALBUMIN 1.7 g/dL (3.5-5.0); ALBUMIN/GLOBULIN RATIO 0.4 (0.8-2.0); ANION GAP 12.2 mmol/L (8-16); CALCIUM 8.4 mg/dL (8.4-10.2); CREATININE, SERUM 1.79 mg/dL (0.72-1.25); POTASSIUM 4.2 mmol/L (3.5-5.1)
--- NOTE | 2019-08-21 07:01 | NUR ---
CHANGE OF SHIFT REPORT RECEIVED FROM PM NURSE. PT IN STABLE CONDITION. WILL CONTINUE TO MONITOR.
[2019-08-21] MEDS: INSULIN REGULAR, HUMAN 100 UNIT/1 ML 3ML VIAL SQ SCH ×4 (07:30→22:00)
[2019-08-21 08:03] LABS: LYMPHOCYTES % (MANUAL) 11 % (19-48); MONOCYTES % (MANUAL) 4 % (3.4-9.0); MYELOCYTES % (MANUAL) 2 % (0-0); NEUTROPHILS % (MANUAL) 82 % (40-74); PLATELET ESTIMATE ADEQUATE; PLATELET MORPHOLOGY COMMENT NORMAL; RBC MORPHOLOGY COMMENT NORMAL
[2019-08-21] MEDS: INSULIN LISPRO 100 UNIT/1 ML 3ML VIAL SQ SCH ×3 (08:19→16:32)
[2019-08-21] MEDS: ASCORBIC ACID 500 MG TAB PO SCH ×2 (10:31→16:28)
[2019-08-21] MEDS: CHOLECALCIFEROL 400 UNIT TAB PO SCH ×2 (10:31→16:28)
[2019-08-21] MEDS: CARVEDILOL 3.125 MG TAB PO SCH ×2 (10:31→16:28)
[2019-08-21] MEDS: ZINC SULFATE 220 MG CAP PO SCH (10:31)
[2019-08-21] MEDS: DEXAMETHASONE PHOS 4MG/ML 6 MG in SODIUM CHLORIDE 0.9% 50ML 50 ML IV SCH (10:36)
[2019-08-21] MEDS: AZITHROMYCIN 500MG/NS 250 ML 250 ML IV SCH (14:15)
--- NOTE | 2019-08-21 14:25 | NUR ---
ORDER RECEIVED FOR HOME O2 EVAL. PT DID NOT MEET CRITERIA FOR HOME O2 GAY OJEDA NOTIFIED.
--- NOTE | 2019-08-21 16:22 | NUR ---
transfer of care report given to GAY Mccormick in Observation/COVID-19 unit. pt will be transferred to room 176.
[2019-08-21] MEDS: ENOXAPARIN 30 MG/0.3 ML SYR SC SCH (16:28)
--- NOTE | 2019-08-21 17:04 | NUR ---
PATIENT RECEIVED FROM MED SURG 3 PER WHEEL CHAIR. ALERT AND VERBALLY RESPONSIVE ASSISTED TO BED, SITTING AT BED SIDE EATING DINNER. ALL PERSONAL ITEMS CLOSE TO PATIENT. CALL LIGHT AT REACH.
--- NOTE | 2019-08-21 20:31 | NUR ---
[facility] [id number] Repeat AM labs. Semirestrictive fluid strategy. Continue COVID19 pneumonia treatment. So far still tolerating RA FIO2
[2019-08-21] MEDS ORDERED: PREDNISONE20 MG PO (20:33)
[2019-08-21] MEDS ORDERED: AZITHROMYCIN250 MG PO (20:33)
[2019-08-21] MEDS: INSULIN GLARGINE 100 UNITS/ML VIAL SQ SCH (22:00)
--- NOTE | 2019-08-21 22:58 | Progress Note ---
DATE: 08/21/2019 Internal Medicine Progress Note This is coverage for Dr. Reina. SUBJECTIVE: Mr. Lang was seen and examined at bedside. He continues with steady progress. His creatinine remains elevated and he is on a semi-fluid restrictive treatment protocol. The patient came out of ICU. He is oxygenating well. His blood sugars are not in danger range, although are still elevated. REVIEW OF SYSTEMS: No headaches, no diarrhea. OBJECTIVE: VITAL SIGNS: Afebrile. Vital signs noted, reviewed per the chart record. GENERAL: In no acute distress, alert and calm. HEENT: Normocephalic and atraumatic. NECK: Supple. Throat midline. LUNGS: Bilateral air entry, clear. CARDIOVASCULAR: S1 and S2. No murmurs, rubs, or gallops. Other exams were not done due to coronavirus pandemic. LABORATORY DATA: 4.2 potassium, 26 bicarbonate, 31 BUN, 1.79 creatinine. Albumin 1.7. 37 hematocrit, 9.5 white count. IMPRESSION AND PLAN: 1. Diabetic ketoacidosis, improved. 2. Diabetes, uncontrolled. 3. Coronavirus pneumonitis. 4. Acute kidney injury, ultrasonographic normal kidneys. Follow up another day and repeat labs in the morning. given his coronavirus pneumonia. Continue steroids for now and vitamins. The patient will also complete his antibiotics for community-acquired pneumonia. He does not qualify for home oxygen. Hopefully, he can go home soon if his kidneys continue to improve. MD MILLY Nunes/MODL /[id number]
[2019-08-21] MEDS: CEFTRIAXONE SOD 1 GM/NS 50 ML 50 ML IV SCH (23:00)
[2019-08-21] MEDS: GUAIFENESIN/CODEINE 10 ML CUP PO PRN (23:25)
[2019-08-21] MEDS: ONDANSETRON HCL INJ 2MG/ML 2ML 2 MG/ML VIAL IV PRN (23:29)
[2019-08-22] VITALS: BP 173/93
[2019-08-22 04:00] VITALS: BP 168/86
[2019-08-22] MEDS ORDERED: HYDRALAZINE HCL 20 MG/ML VIAL IV PRN (04:15)
--- NOTE | 2019-08-22 04:42 | NUR ---
Md notified pt BP elevated at 173/93. Orders noted and medication Hyralazine 10mg. Pt states he takes blood pressure medication but has not taken on this hospital visit. [facility].
[2019-08-22] MEDS: ONDANSETRON HCL INJ 2MG/ML 2ML 2 MG/ML VIAL IV PRN (05:30)
[2019-08-22] MEDS: GUAIFENESIN/CODEINE 10 ML CUP PO PRN (05:30)
[2019-08-22 06:59] LABS: ANION GAP 12.3 mmol/L (8-16); CALCIUM 8.8 mg/dL (8.4-10.2); CREATININE, SERUM 1.74 mg/dL (0.72-1.25); MAGNESIUM 2.3 MG/DL (1.3-2.1); POTASSIUM 4.3 mmol/L (3.5-5.1)
--- NOTE | 2019-08-22 07:16 | NUR ---
PATIENT IN BED RESTING WITH EYES CLOSED, NO S/S OF DISTRESS NOTED. O2 IN PLACE VIA N/C. BED IN LOWER POSITION, CALL LIGHT AT REACH.
[2019-08-22] MEDS: INSULIN REGULAR, HUMAN 100 UNIT/1 ML 3ML VIAL SQ SCH ×2 (07:30→11:30)
[2019-08-22] MEDS: INSULIN LISPRO 100 UNIT/1 ML 3ML VIAL SQ SCH ×2 (07:30→11:30)
[2019-08-22 07:45] VITALS: BP 142/76
[2019-08-22 08:19] VITALS: BP 142/76
[2019-08-22] MEDS: ZINC SULFATE 220 MG CAP PO SCH (09:00)
[2019-08-22] MEDS: CARVEDILOL 3.125 MG TAB PO SCH ×2 (09:08→17:04)
[2019-08-22] MEDS: CHOLECALCIFEROL 400 UNIT TAB PO SCH ×2 (09:08→17:04)
[2019-08-22] MEDS: ASCORBIC ACID 500 MG TAB PO SCH ×2 (09:08→17:04)
[2019-08-22] MEDS ORDERED: SODIUM CHLORIDE 0.9% 250ML 250 ML ONE (10:33)
[2019-08-22] MEDS: DEXAMETHASONE PHOS 4MG/ML 6 MG in SODIUM CHLORIDE 0.9% 50ML 50 ML IV SCH (10:33)
[2019-08-22 11:58] VITALS: BP 145/74
--- NOTE | 2019-08-22 12:06 | NUR ---
HOME O2 EVAL PERFORMED, PATIENT NOT QUALIFYING. IN BED WITH CALL LIGHT AT REACH.
--- NOTE | 2019-08-22 14:52 | NUR ---
Nutrition Screen Note RD Recommendation for Physician: -Continue current diet as ordered Plan of Care: RD following, monitoring for tolerance and adequacy Nutrition reason for involvement: Length of stay Primary Diagnose(s): DKA PMH: diabetes Ht: 63 in Wt:151 lb BMI: 26.7 kg/m2 IBW:[address] Assessment: (08/22/19) Chart reviewed. Labs and meds reviewed. Pt is a 44 year old male admitted with DKA. Pt is COVID-19+; therefore, unable to enter room due to isolation precautions. Attempted to call pt over the phone, but he did not answer. It is recorded that pt has been consuming 50-100% of meals during admission. Unable to obtain weight history from pt. Pts last recorded weight in chart was 193-198lbs from an admission in February 2016. Pt currently weighs 151 lbs per chart. Will continue to monitor. Current Diet: 1800 ADA Malnutrition Evaluation (08/22/19) Unable to speak to pt. Will re-evaluate at follow-up as appropriate. Diet Education Needs Assessment: RD is available for diet education as needed Nutrition Care Level: low Signed: Christine Baldwin, RD, LD
[2019-08-22 16:07] VITALS: BP 148/76
--- NOTE | 2019-08-22 16:45 | NUR ---
DR GONZALEZB IN TO SEE PATIENT. HE STATED THAT HE SPOKE TO DR STEWART, DR STEWART GAVE THE OK TO DISCHARGE PATIENT.
[2019-08-22] MEDS: ENOXAPARIN 30 MG/0.3 ML SYR SC SCH (17:00)
--- NOTE | 2019-08-22 17:47 | NUR ---
PATIENT HAS A DISCHARGE ORDER. AWAITING FOR DR SOLARES TO WRITE THE PRESCRIPTIONS FOR NEW MEDICATIONS.
--- NOTE | 2019-08-22 18:26 | Progress Note ---
DATE: SUBJECTIVE: Mr. Lang is doing well. He is feeling much better. He would like to go home. No oxygen. PHYSICAL EXAMINATION: GENERAL: He is currently alert, oriented. VITAL SIGNS: Stable. Currently, afebrile. HEENT: Not icteric. NECK: Supple. CHEST: Clear. IMPRESSION: Status post COVID-19. The patient was discharged home with aspirin 325 p.o. daily, albuterol p.r.n. cough. Follow up with his PCP. Follow up with me in 1 month. MD LIS Shankar/RONNIE /[id number]
--- NOTE | 2019-08-22 20:31 | NUR ---
Recieved pt in bed awake a/o x4. No s/sx of acute distress noted. No c/o at this time, Anticipating discharge home. Discharge instructions reviewed with patient with questions answered. Bed in low position, call light and personal items within reach. Awaiting spouse for pickup for discharge at this time. Will cont to mon
== END 2019-08-22 21:20 | disposition home or self-care (01) | DRG 177 ==
LOC: ER 21:33 → ERHOLD 08-17 07:31 → ICU 08-17 09:04 → MED/SURG3 08-18 16:23 → IMCU 08-21 16:48
PROVIDERS: ADMIT Internal Medicine; ATTEND Internal Medicine
PROC: 8E0ZXY6 Isolation (ICD-10-PCS; principal; 2019-08-17)
DX: U07.1 COVID-19 (principal); E10.10 Type 1 diabetes mellitus with ketoacidosis without coma; J12.89 Other viral pneumonia; J15.9 Unspecified bacterial pneumonia; N17.9 Acute kidney failure, unspecified; Z79.4 Long term (current) use of insulin; E10.22 Type 1 diabetes mellitus with diabetic chronic kidney disease; N18.9 Chronic kidney disease, unspecified; I12.9 Hypertensive chronic kidney disease with stage 1 through stage 4 chronic kidney disease, or unspecified chronic kidney disease
CPT/HCPCS: 36415; 36600; 71045; 71046; 76770; 80048; 80053; 81001; 82550; 82553; 82948; 83605; 83735; 84484; 85025; 87040; 87635; 96372; 99284; J0360; J0456; J0696; J1650; J1815; J1817; J2405; J2543; J7030; J7050

== ENCOUNTER 2020-03-25 15:34 | Inpatient (IN) | payer OTHER ==
[~2020-03-25] VITALS: Ht 162.6 cm; Wt 103.4 kg
[~2020-03-25 15:34] MED LIST changes: +AZITHROMYCIN250 MG PO; +PREDNISONE20 MG PO
[2020-03-25 15:57] LABS: BASOPHILS % 0.3 % (0.0-1.0); EOSINOPHILS # (AUTO) 0.1 (0.0-0.4); EOSINOPHILS % 1.2 % (0.0-6.0); HEMATOCRIT 42.7 % (38.2-49.6); HEMOGLOBIN 14.1 g/dL (14.0-18.0); LYMPHOCYTES # (AUTO) 1.3 (1.0-3.2); LYMPHOCYTES % 12.5 % (18.0-39.1); MEAN CORPUSCULAR VOLUME 87.7 fL (81-99); MONOCYTES # (AUTO) 0.6 (0.2-0.8); MONOCYTES % 5.5 % (4.4-11.3); NEUTROPHILS # (AUTO) 8.5 (2.1-6.9); PLATELET COUNT 269 x10e3/uL (140-360); RED BLOOD COUNT 4.87 x10e6/uL (4.3-5.7); RED CELL DISTRIBUTION WIDTH 13.5 % (11.7-14.4)
[2020-03-25 16:14] LABS: ALBUMIN/GLOBULIN RATIO 0.8 (0.8-2.0); ANION GAP 14.9 mmol/L (8-16); CALCIUM 9.1 mg/dL (8.4-10.2); CREATININE, SERUM 1.88 mg/dL (0.72-1.25); POTASSIUM 3.9 mmol/L (3.5-5.1)
[2020-03-25 16:21] LABS: CREATINE KINASE MB 2.3 ng/mL (0-5.0)
[2020-03-25 17:48] VITALS: BP 174/89
[2020-03-25 18:08] VITALS: BP 174/89
[2020-03-25] MEDS ORDERED: ATORVASTATIN CA10 MG PO (18:20)
[2020-03-25] MEDS ORDERED: METOPROLOL TART25 MG PO (18:22)
[2020-03-25] MEDS ORDERED: BASAGLAR K100 UNIT/1 SC (18:22)
[2020-03-25 21:00] VITALS: BP 166/86
[2020-03-25] MEDS ORDERED: ATORVASTATIN 10 MG TAB PO SCH (21:00)
[2020-03-25] MEDS ORDERED: ACETAMINOPHEN 325 MG TAB PO PRN (21:00)
[2020-03-25] MEDS ORDERED: DEXTROSE 50% SYRINGE 50 ML IV PRN (21:00)
[2020-03-25] MEDS ORDERED: HYDRALAZINE HCL 20 MG/ML VIAL IV PRN (21:00)
[2020-03-25] MEDS ORDERED: ONDANSETRON HCL INJ 2MG/ML 2ML 2 MG/ML VIAL IV PRN (21:00)
[2020-03-25] MEDS ORDERED: GUAIFENESIN 200 MG/10 ML UDC PO PRN (21:00)
[2020-03-25 21:10] VITALS: BP 166/86
[2020-03-25] MEDS ORDERED: METOPROLOL TARTRATE 25 MG TAB PO ONE (21:15)
[2020-03-25] MEDS: INSULIN REGULAR, HUMAN 100 UNIT/1 ML 3ML VIAL SQ SCH (21:57)
[2020-03-26 01:05] VITALS: BP 125/67
[2020-03-26 05:55] VITALS: BP 135/73
[2020-03-26 06:38] LABS: BASOPHILS % 0.3 % (0.0-1.0); EOSINOPHILS # (AUTO) 0.2 (0.0-0.4); HEMATOCRIT 39.5 % (38.2-49.6); HEMOGLOBIN 12.9 g/dL (14.0-18.0); LYMPHOCYTES # (AUTO) 1.8 (1.0-3.2); LYMPHOCYTES % 23.6 % (18.0-39.1); MEAN CORPUSCULAR HEMOGLOBIN 28.6 pg (28-32); MEAN CORPUSCULAR HGB CONC 32.7 g/dL (31-35); MEAN CORPUSCULAR VOLUME 87.6 fL (81-99); MONOCYTES # (AUTO) 0.6 (0.2-0.8); MONOCYTES % 8.5 % (4.4-11.3); NEUTROPHILS # (AUTO) 4.9 (2.1-6.9); NEUTROPHILS % 65.3 % (38.7-80.0); PLATELET COUNT 252 x10e3/uL (140-360); RED BLOOD COUNT 4.51 x10e6/uL (4.3-5.7); RED CELL DISTRIBUTION WIDTH 13.6 % (11.7-14.4)
[2020-03-26 07:00] LABS: ALBUMIN 2.6 g/dL (3.5-5.0); ALBUMIN/GLOBULIN RATIO 0.8 (0.8-2.0); ANION GAP 12.7 mmol/L (8-16); CALCIUM 8.4 mg/dL (8.4-10.2); CREATININE, SERUM 1.92 mg/dL (0.72-1.25); POTASSIUM 4.7 mmol/L (3.5-5.1)
[2020-03-26] MEDS: INSULIN REGULAR, HUMAN 100 UNIT/1 ML 3ML VIAL SQ SCH ×3 (07:30→17:51)
[2020-03-26 07:46] LABS: FREE THYROXINE INDEX 1.6055 (1.4-3.8); THYROID STIMULATING HORMONE 0.884 uIU/mL (0.350-4.940)
[2020-03-26 07:47] VITALS: BP 152/90
[2020-03-26 08:10] VITALS: BP 152/90
[2020-03-26] MEDS: METOPROLOL TARTRATE 25 MG TAB PO SCH ×2 (08:53→17:15)
[2020-03-26] MEDS ORDERED: LISINOPRIL 10 MG TAB PO SCH (09:00)
[2020-03-26 12:36] VITALS: BP 142/73
[2020-03-26] MEDS ORDERED: HUMALOG100 UNIT/3 SC (14:48)
[2020-03-26] MEDS ORDERED: METOPROLOL TART25 MG PO (14:48)
[2020-03-26] MEDS ORDERED: ATORVASTATIN CA10 MG PO (14:48)
[2020-03-26] MEDS ORDERED: BASAGLAR K100 UNIT/1 SC (14:48)
[2020-03-26 16:12] VITALS: BP 144/91
== END 2020-03-26 17:50 | disposition home or self-care (01) | DRG 637 ==
LOC: ER 16:15 → ERHOLD 16:28 → MED/SURG3 17:27
PROVIDERS: ADMIT Internal Medicine; ATTEND Internal Medicine
DX: E11.649 Type 2 diabetes mellitus with hypoglycemia without coma (principal); G93.41 Metabolic encephalopathy; E78.5 Hyperlipidemia, unspecified; L80 Vitiligo; E11.22 Type 2 diabetes mellitus with diabetic chronic kidney disease; I12.9 Hypertensive chronic kidney disease with stage 1 through stage 4 chronic kidney disease, or unspecified chronic kidney disease; N18.9 Chronic kidney disease, unspecified; V48.0XXA Car driver injured in noncollision transport accident in nontraffic accident, initial encounter; Z79.4 Long term (current) use of insulin
CPT/HCPCS: 36415; 80053; 82550; 82553; 82948; 83036; 84436; 84443; 84479; 84484; 85025; 93005; 99284; J1817; U0002

== ENCOUNTER 2024-10-17 15:31 | Inpatient (IN) | payer OTHER ==
[~2024-10-17] VITALS: Ht 160 cm; Wt 103.4 kg
[~2024-10-17 15:31] MED LIST changes: +ATORVASTATIN CA10 MG PO; +ATORVASTATIN CA20 MG PO; +BASAGLAR K100 UNIT/1 SC; +INSULIN AS100 UNIT/2; +LANTUS 3ML100 UNITS/ SC; +LIPITOR20 MG PO; +LISINOPRIL5 MG PO; +LOPRESSOR25 MG PO; +METOPROLOL SUCC50 MG PO; +METOPROLOL TART25 MG PO; +NORVASC5 MG PO; +ONDANSETRON ODT4 MG PO
[2024-10-17 16:07] LABS: BASOPHILS % 0.3 % (0.0-1.0); EOSINOPHILS % 0.0 % (0.0-6.0); LYMPHOCYTES % 6.0 % (18.0-39.1); MONOCYTES % 6.3 % (4.4-11.3); NEUTROPHILS % 87.0 % (38.7-80.0); RED CELL DISTRIBUTION WIDTH 12.7 % (11.7-14.4)
[2024-10-17] MEDS: ONDANSETRON HCL INJ 2MG/ML 2ML 2 MG/ML VIAL IV STA (16:15)
[2024-10-17] MEDS: SODIUM CHLORIDE 0.9% 1000ML 1,000 ML IV SCH ×2 (16:15→20:21)
[2024-10-17 16:21] LABS: INR 0.87
[2024-10-17 16:38] LABS: EST GLOMERULAR FILTRATION RATE 4.0 ML/MIN (>=60)
[2024-10-17] MEDS: ASPIRIN 81 MG CHEW TAB PO ONE (16:53)
[2024-10-17 17:19] LABS: ABG PCO2 43 mmHg (35-45); ABG PH 7.38 (7.35-7.45); ABG PO2 60 mmHg (80-105)
[2024-10-17 17:20] LABS: ABG BASE EXCESS 0.0 mmol/L (-2 - 3); ABG HCO3 25 mmol/L (22-26); ABG OXYGEN SATURATION 90.0 % (95-98); ABG TCO2 27
[2024-10-17] MEDS: SODIUM CHLORIDE 0.9% 1000ML 1,000 ML IV STA (19:10)
[2024-10-17] MEDS ORDERED: SODIUM CHLORIDE FLUSH 10 ML SYR INJ PRN (19:45)
[2024-10-17] MEDS ORDERED: Morphine 4mg INJECTION 4 MG/ML INJ IV PRN (19:45)
[2024-10-17] MEDS ORDERED: POTASSIUM CHLORIDE 20MEQ/100ML 200 ML IV PRN (20:00)
[2024-10-17] MEDS ORDERED: MAGNESIUM SULF 1GRAM/DEXTROSE 100 ML IV PRN (20:00)
[2024-10-17] MEDS: DEXTROSE 5%/0.45% SOD CHL 1,000 ML IV SCH (20:00)
[2024-10-17] MEDS: INSULIN REGULAR, HUMAN 3ML VL 100 UNIT in SODIUM CHLORIDE 0.9% 100 ML IV SCH (20:22)
[2024-10-17 20:30] VITALS: PULSE 84; RESP 18; O2SAT 98
[2024-10-18] VITALS (18 sets, daily range): BP systolic 123–145; BP diastolic 64–86; PULSE 68–85; RESP 12–23; TEMP 98.2–99; O2SAT 91–100
[2024-10-18 00:50] LABS: EST GLOMERULAR FILTRATION RATE 4.0 ML/MIN (>=60)
[2024-10-18 04:41] LABS: BASOPHILS % 0.3 % (0.0-1.0); EOSINOPHILS % 0.2 % (0.0-6.0); LYMPHOCYTES % 8.9 % (18.0-39.1); MONOCYTES % 9.3 % (4.4-11.3); NEUTROPHILS % 81.0 % (38.7-80.0); RED CELL DISTRIBUTION WIDTH 12.8 % (11.7-14.4)
[2024-10-18 05:04] LABS: EST GLOMERULAR FILTRATION RATE 4.0 ML/MIN (>=60)
[2024-10-18] MEDS ORDERED: DILTIAZEM HCL VIAL 5 ML ONE (08:35)
[2024-10-18] MEDS: DILTIAZEM HCL 5 MG/ML 5 ML VIAL IV ONE (08:45)
[2024-10-18] MEDS: MUPIROCIN 2% OINT 22 GM TUBE TOP SCH (09:00)
[2024-10-18] MEDS: METOPROLOL TARTRATE 25 MG TAB PO ONE (10:22)
[2024-10-18] MEDS: DILTIAZEM HCL 5 MG/ML 5 ML VIAL IV STA (10:23)
[2024-10-18 10:32] LABS: EST GLOMERULAR FILTRATION RATE 4.0 ML/MIN (>=60)
[2024-10-18] MEDS ORDERED: AMIODARONE HCL 150 MG/100 ML BAG IV ONE (10:45)
[2024-10-18] MEDS ORDERED: AMIODARONE 900MG 900 MG in Premix Bag 1 BAG IV SCH (10:45)
[2024-10-18] MEDS: AMIODARONE HCL 150 MG in DEXTROSE 5% 100ML 100 ML IV SCH (11:07)
[2024-10-18] MEDS: ONDANSETRON HCL INJ 2MG/ML 2ML 2 MG/ML VIAL IV PRN (11:07)
[2024-10-18] MEDS: AMIODARONE 900MG 500 ML IV ONE (11:24)
[2024-10-18 13:32] LABS: EST GLOMERULAR FILTRATION RATE 4.0 ML/MIN (>=60)
[2024-10-18 22:54] LABS: BASOPHILS % 0.3 % (0.0-1.0); EOSINOPHILS % 0.7 % (0.0-6.0); LYMPHOCYTES % 10.5 % (18.0-39.1); MONOCYTES % 10.3 % (4.4-11.3); NEUTROPHILS % 77.8 % (38.7-80.0); RED CELL DISTRIBUTION WIDTH 12.7 % (11.7-14.4)
[2024-10-18 23:07] LABS: EST GLOMERULAR FILTRATION RATE 4.0 ML/MIN (>=60)
[2024-10-19] VITALS (23 sets, daily range): BP systolic 83–153; BP diastolic 43–125; PULSE 65–85; RESP 11–20; TEMP 98–98.4; O2SAT 94–100
[2024-10-19 03:57] LABS: BASOPHILS % 0.3 % (0.0-1.0); EOSINOPHILS % 0.9 % (0.0-6.0); LYMPHOCYTES % 13.4 % (18.0-39.1); MONOCYTES % 10.0 % (4.4-11.3); NEUTROPHILS % 75.0 % (38.7-80.0); RED CELL DISTRIBUTION WIDTH 12.6 % (11.7-14.4)
[2024-10-19 04:43] LABS: EST GLOMERULAR FILTRATION RATE 4.0 ML/MIN (>=60)
[2024-10-19] MEDS: METOPROLOL TARTRATE 25 MG TAB PO SCH (08:06)
[2024-10-19] MEDS ORDERED: GENTAMICIN SULFATE 15 GM CR TP SCH (09:00)
[2024-10-19] MEDS ORDERED: DEXTROSE 50% SYRINGE 50 ML IV PRN (12:00)
[2024-10-19] MEDS: INSULIN LISPRO 100 UNIT/1 ML 3ML VIAL SQ SCH ×2 (12:05→16:41)
[2024-10-19] MEDS: GENTAMICIN SULFATE 15 GM CR TP SCH (13:25)
[2024-10-19] MEDS: AMLODIPINE BESYLATE 5 MG TAB PO SCH (13:32)
[2024-10-19] MEDS ORDERED: INSULIN LISPRO 100 UNIT/1 ML 3ML VIAL SQ SCH (16:30)
[2024-10-19] MEDS: AMIODARONE HCL 200 MG TAB PO SCH (16:38)
[2024-10-19] MEDS ORDERED: INSULIN GLARGINE 100 UNITS/ML VIAL SQ SCH (17:00)
[2024-10-19] MEDS: INSULIN GLARGINE 100 UNITS/ML VIAL SQ SCH (21:54)
[2024-10-20] VITALS (13 sets, daily range): BP systolic 93–148; BP diastolic 44–72; PULSE 72–90; RESP 14–23; TEMP 98–98.4; O2SAT 96–100
[2024-10-20 06:33] LABS: EST GLOMERULAR FILTRATION RATE 5.0 ML/MIN (>=60)
[2024-10-20] MEDS: SODIUM CHLORIDE 1 GM TAB PO SCH ×2 (14:06→21:00)
[2024-10-20] MEDS: INSULIN LISPRO 100 UNIT/1 ML 3ML VIAL SQ SCH (16:30)
[2024-10-20] MEDS ORDERED: DOCUSATE SODIUM LIQD 100 MG/10 ML UDC NG SCH (17:00)
[2024-10-20] MEDS: CALCIUM CARBONATE 500 MG CHEWABLE TABS PO SCH (17:43)
[2024-10-20] MEDS: DOCUSATE SODIUM LIQD 100 MG/10 ML UDC NG SCH (21:00)
[2024-10-20] MEDS: METOPROLOL TARTRATE 25 MG TAB PO SCH (21:49)
[2024-10-20] MEDS: INSULIN GLARGINE 100 UNITS/ML VIAL SQ SCH (22:00)
[2024-10-20] MEDS: MUPIROCIN 2% OINT 22 GM TUBE TOP SCH (22:01)
[2024-10-21] VITALS (7 sets, daily range): BP systolic 110–135; BP diastolic 62–79; PULSE 73–84; RESP 17–20; TEMP 97.7–98.6; O2SAT 96–100
[2024-10-21 06:30] LABS: EST GLOMERULAR FILTRATION RATE 5.0 ML/MIN (>=60)
[2024-10-21] MEDS: CALCITRIOL 0.25 MCG CAP PO SCH (09:13)
[2024-10-21 11:35] LABS: BASOPHILS % 0.4 % (0.0-1.0); EOSINOPHILS % 2.9 % (0.0-6.0); LYMPHOCYTES % 16.0 % (18.0-39.1); MONOCYTES % 11.7 % (4.4-11.3); NEUTROPHILS % 68.4 % (38.7-80.0); RED CELL DISTRIBUTION WIDTH 12.8 % (11.7-14.4)
[2024-10-21] MEDS: INSULIN LISPRO 100 UNIT/1 ML 3ML VIAL SQ SCH (16:30)
[2024-10-21] MEDS ORDERED: CALCIUM CARBONATE 500 MG CHEWABLE TABS PO SCH (17:00)
[2024-10-21] MEDS: CALCIUM CARBONATE 500 MG CHEWABLE TABS PO SCH (17:19)
[2024-10-21] MEDS: INSULIN GLARGINE 100 UNITS/ML VIAL SQ SCH (22:36)
[2024-10-22 03:24] VITALS: BP 147/82; PULSE 87; RESP 18; TEMP 98.7; O2SAT 100
[2024-10-22 06:54] LABS: ABG BASE EXCESS 0.0 mmol/L (-2 - 3); ABG HCO3 25 mmol/L (22-26); ABG OXYGEN SATURATION 90.0 % (95-98); ABG PCO2 43 mmHg (35-45); ABG PH 7.38 (7.35-7.45); ABG PO2 59 mmHg (80-105); ABG TCO2 27
[2024-10-22] MEDS ORDERED: AMIODARONE HCL200 MG PO (09:54)
[2024-10-22] MEDS ORDERED: ELIQUIS5 MG PO (09:56)
[2024-10-22 10:30] VITALS: BP 137/75; PULSE 83; RESP 20; TEMP 98.7; O2SAT 100
[2024-10-22] MEDS: VANCOMYCIN 1.25GM/250 ML (PEG) 250 ML IV ONE (12:27)
[2024-10-22 12:51] VITALS: BP 116/70; PULSE 86; RESP 20; TEMP 98.5; O2SAT 100
[2024-10-22 16:12] VITALS: BP 125/71; PULSE 87; RESP 19; TEMP 98.2; O2SAT 100
== END 2024-10-22 19:30 | disposition home or self-care (01) | DRG 637 ==
LOC: ER 15:35 → ERHOLD 20:36 → ICU 10-18 16:17 → MED/SURG3 10-20 15:10
PROVIDERS: ADMIT Internal Medicine; ATTEND Internal Medicine
PROC: 4A033B1 Measurement of Arterial Pressure, Peripheral, Percutaneous Approach (ICD-10-PCS; 2024-10-17)
PROC: 06HY33Z Insertion of Infusion Device into Lower Vein, Percutaneous Approach (ICD-10-PCS; 2024-10-17)
PROC: 3E1M39Z Irrigation of Peritoneal Cavity using Dialysate, Percutaneous Approach (ICD-10-PCS; principal; 2024-10-19)
DX: E11.10 Type 2 diabetes mellitus with ketoacidosis without coma (principal); I21.A1 Myocardial infarction type 2; N18.6 End stage renal disease; I47.19 Other supraventricular tachycardia; Z68.41 Body mass index [BMI] 40.0-44.9, adult; E87.1 Hypo-osmolality and hyponatremia; E11.65 Type 2 diabetes mellitus with hyperglycemia; I12.9 Hypertensive chronic kidney disease with stage 1 through stage 4 chronic kidney disease, or unspecified chronic kidney disease; E11.22 Type 2 diabetes mellitus with diabetic chronic kidney disease; Z79.4 Long term (current) use of insulin; Z99.2 Dependence on renal dialysis; D63.1 Anemia in chronic kidney disease; D75.839 Thrombocytosis, unspecified; E83.41 Hypermagnesemia; I25.10 Atherosclerotic heart disease of native coronary artery without angina pectoris; I48.91 Unspecified atrial fibrillation; N28.9 Disorder of kidney and ureter, unspecified; D72.829 Elevated white blood cell count, unspecified; E11.42 Type 2 diabetes mellitus with diabetic polyneuropathy; J98.01 Acute bronchospasm; E66.9 Obesity, unspecified; J06.9 Acute upper respiratory infection, unspecified; B97.89 Other viral agents as the cause of diseases classified elsewhere
CPT/HCPCS: 36415; 36555; 36600; 70450; 71250; 74176; 80048; 80053; 82550; 82805; 82948; 83036; 83605; 83735; 84439; 84443; 84484; 85025; 85610; 87040; 93005; 93306; 94799; 99252; 99285; J0692; J1815; J2405; J7030; J7050